=== PATIENT | female | born 1975 ===

== ENCOUNTER 2016-09-21 14:33 | Emergency (ER) | payer SELFPAY ==
[2016-09-21] MEDS ORDERED: NORCO 5/325 PO ONE (16:15)
[2016-09-21] MEDS ORDERED: MOTRIN PO ONE (16:15)
[2016-09-21] MEDS ORDERED: FLEXERIL PO ONE (16:15)
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
[2016-09-21 17:31] VITALS: BP 136/58
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
== END 2016-09-21 18:52 | disposition home or self-care (01) ==
LOC: ED 14:33
DX: S49.91XA Unspecified injury of right shoulder and upper arm, initial encounter (principal); M25.521 Pain in right elbow; V89.2XXA Person injured in unspecified motor-vehicle accident, traffic, initial encounter; W22.10XA Striking against or struck by unspecified automobile airbag, initial encounter; Y93.89 Activity, other specified; Y99.9 Unspecified external cause status; Y92.410 Unspecified street and highway as the place of occurrence of the external cause